=== PATIENT | male | born 1995 | race Hispanic/Latino ===

== ENCOUNTER 2017-04-11 16:49 | Emergency (ER) | payer BC, SELFPAY ==
[2017-04-11] MEDS ORDERED: Adacel (T-DAP) 0.5 ML VIAL ONE (17:31)
[2017-04-11] MEDS ORDERED: Bacitracin Zinc 1 Packet ONE (17:33)
[2017-04-12] MEDS ORDERED: Acetaminophen/Codeine 30-300mg Tablet ONE (16:15)
== END 2017-04-11 18:54 ==
LOC: ERS 16:49
DX: S81.851A Open bite, right lower leg, initial encounter (principal); W54.0XXA Bitten by dog, initial encounter
CPT/HCPCS: 90471; 90715